=== PATIENT | male | born 1950 | race Caucasian/White ===

== ENCOUNTER 2021-05-19 22:49 | Emergency (ER) | payer OTHER, MEDICARE, SELFPAY ==
--- NOTE | ~2021-05-19 | XR_ITS ---
EXAMINATION: LEFT SHOULDER, LEFT ANKLE, LEFT FOOT CLINICAL INFORMATION: Fall with shoulder, ankle and foot pain COMPARISON: None TECHNIQUE: 3 views left shoulder, 2 views left ankle, 3 views left foot FINDINGS: Left shoulder: No significant bone joint or soft tissue abnormality is seen. Left ankle: Generalized osteopenia is present The ankle mortise appears stable. There is a spiral fracture through the lateral malleolus which is nondisplaced without significant associated soft tissue swelling.. Well-corticated bony fragments are seen at the ends of the medial and lateral malleolus, possibly secondary to remote trauma. There is one fragment at the lateral portion of the medial malleolus which does not have sclerotic margins which could represent an avulsion fracture. Left foot: Generalized osteopenia is present. At the base of the proximal phalange ease of the first and second digits on the radial aspects, there or fractures which extend into the joint space XR/XR ankle LT min 3V IMPRESSION: 1. No shoulder fracture. 2. Fracture of the lateral malleolus and possibly medial malleolus 3. Fractures at the base of the proximal phalanges of the first and second digits.
--- NOTE | ~2021-05-19 | CT_ITS ---
EXAMINATION: CT HEAD WITHOUT CONTRAST CLINICAL INFORMATION: Fall, head injury, on Pradaxa COMPARISON: None TECHNIQUE: Contiguous axial imaging was performed from the skull base to vertex without intravenous administration of contrast. Coronal and sagittal reformatted images are performed at the CT scanner. [This CT examination was performed using dose optimization techniques as appropriate, variously including the following: *Automated exposure control *Adjustment of mA and/or kV according to patient size (this includes techniques or standardized protocols for targeted exams where dose is matched to indication/reason for exam; i.e. extremities or head) *Use of iterative reconstruction technique] DLP: 743 mGy-cm. FINDINGS: Large area of old infarct of encephalomalacia in the right MCA territory communicating to the right lateral ventricle. There is no evidence of acute intracranial hemorrhage or territorial infarction. No abnormal mass-effect or midline shift is seen. Cortés to white matter differentiation is well preserved. No extra-axial fluid collections are identified. Acute There is generalized global volume loss. There is moderate prominence of the ventricles and the sulci . There are vascular calcifications of the internal carotid arteries bilaterally. There is no osseous abnormality. The mastoid air cells and visualized portions of the paranasal sinuses are well-aerated. CT/CT head/brain wo con IMPRESSION: No acute intracranial pathology.
--- NOTE | ~2021-05-19 | XR_ITS ---
EXAMINATION: LEFT SHOULDER, LEFT ANKLE, LEFT FOOT CLINICAL INFORMATION: Fall with shoulder, ankle and foot pain COMPARISON: None TECHNIQUE: 3 views left shoulder, 2 views left ankle, 3 views left foot FINDINGS: Left shoulder: No significant bone joint or soft tissue abnormality is seen. Left ankle: Generalized osteopenia is present The ankle mortise appears stable. There is a spiral fracture through the lateral malleolus which is nondisplaced without significant associated soft tissue swelling.. Well-corticated bony fragments are seen at the ends of the medial and lateral malleolus, possibly secondary to remote trauma. There is one fragment at the lateral portion of the medial malleolus which does not have sclerotic margins which could represent an avulsion fracture. Left foot: Generalized osteopenia is present. At the base of the proximal phalange ease of the first and second digits on the radial aspects, there or fractures which extend into the joint space XR/XR shoulder LT min 2V IMPRESSION: 1. No shoulder fracture. 2. Fracture of the lateral malleolus and possibly medial malleolus 3. Fractures at the base of the proximal phalanges of the first and second digits.
--- NOTE | ~2021-05-19 | XR_ITS ---
EXAMINATION: LEFT SHOULDER, LEFT ANKLE, LEFT FOOT CLINICAL INFORMATION: Fall with shoulder, ankle and foot pain COMPARISON: None TECHNIQUE: 3 views left shoulder, 2 views left ankle, 3 views left foot FINDINGS: Left shoulder: No significant bone joint or soft tissue abnormality is seen. Left ankle: Generalized osteopenia is present The ankle mortise appears stable. There is a spiral fracture through the lateral malleolus which is nondisplaced without significant associated soft tissue swelling.. Well-corticated bony fragments are seen at the ends of the medial and lateral malleolus, possibly secondary to remote trauma. There is one fragment at the lateral portion of the medial malleolus which does not have sclerotic margins which could represent an avulsion fracture. Left foot: Generalized osteopenia is present. At the base of the proximal phalange ease of the first and second digits on the radial aspects, there or fractures which extend into the joint space XR/XR foot LT 2V IMPRESSION: 1. No shoulder fracture. 2. Fracture of the lateral malleolus and possibly medial malleolus 3. Fractures at the base of the proximal phalanges of the first and second digits.
[2021-05-19 22:54] VITALS: BP 154/71; BP 166/76; PULSE 74; PULSE 82; RESP 16; TEMP 36.8; O2SAT 97; O2SAT 98; BMI 31.5
--- NOTE | 2021-05-19 23:09 | ED.FALL ---
HPI - Fall General Chief Complaint: Fall Stated Complaint: ETOH Time Seen by Provider: 05/19/21 23:05 Source: patient and EMS Mode of arrival: EMS Limitations: no limitations History of Present Illness HPI Narrative: [age] year male came in by ambulance for further evaluation after fall. Patient with history of stroke with residual left hemiparesis, patient was walking from the bedroom to the bathroom on his left ankle give out and was twisted causing the patient to fall. Patient was sent for evaluation of left ankle/left shoulder pain and questionable head injury patient is taking Pradaxa for anti coagulation. Related Data Home Medications Medication Instructions Recorded Confirmed amlodipine 5 mg tablet 5 mg PO DAILY 05/20/21 05/20/21 baclofen 500 mcg/mL intrathecal 500 mcg INTRATHECAL DAILY 05/20/21 05/20/21 solution dabigatran etexilate 150 mg 150 mg PO BID 05/20/21 05/20/21 capsule (Pradaxa) duloxetine 60 mg capsule,delayed 60 mg PO DAILY 05/20/21 05/20/21 release sprinkle lamotrigine 100 mg tablet 100 mg PO DAILY 05/20/21 05/20/21 levetiracetam 1,000 mg tablet 1,000 mg PO BID 05/20/21 05/20/21 (Keppra) levothyroxine 25 mcg tablet 25 mcg PO DAILY 05/20/21 05/20/21 lisinopril 10 mg tablet 10 mg PO DAILY 05/20/21 05/20/21 meclizine 25 mg tablet 25 mg PO TID 05/20/21 05/20/21 ondansetron HCl 8 mg tablet 8 mg PO Q8H PRN 05/20/21 05/20/21 pantoprazole 40 mg tablet,delayed 40 mg PO DAILY 05/20/21 05/20/21 release pramipexole 0.25 mg tablet 0.25 mg PO BEDTIME 05/20/21 05/20/21 rosuvastatin 40 mg tablet (Crestor) 40 mg PO DAILY 05/20/21 05/20/21 sennosides 8.6 mg-docusate sodium 1 tab-cap PO BEDTIME 05/20/21 05/20/21 50 mg tablet (Senna-S) Allergies Allergy/AdvReac Type Severity Reaction Status Date / Time codeine Allergy Unknown Verified 05/19/21 22:59 Review of Systems Review of Systems: All other systems are reviewed and are negative Constitutional: Reports as per HPI and Reports no additional constitutional complaints Eyes: Reports as per HPI and Reports no additional eye complaints Reports system reviewed and no additional complaints, except as documented Cardiovascular: Reports as per HPI and Reports no additional cardiovascular complaints Respiratory: Reports as per HPI and Reports no additional respiratory complaints Gastrointestinal: Reports as per HPI and Reports no additional gastrointestinal complaints Genitourinary: Reports no additional female genitourinary complaints Musculoskeletal: Reports no additional musculoskeletal complaints Skin/Breast: Reports system reviewed and no additional complaints, except as docu Psychiatric: Reports no additional psychiatric complaints Endocrine: Reports no additional endocrine complaints Hematologic/Lymphatic: Reports no additional hematologic/lymphatic complaints Allergic/Immunologic: Reports no additional allergic/immunologic complaints Reports system reviewed and no additional complaints, except as documented and Reports Abnormal speech present [facility] Past Medical History Medical History CVA (cerebral vascular accident) Seizure Shoulder separation SunDown syndrome Social History Social History Alcohol intake: current Alcohol intake frequency: holidays/special occasions only Patient Tobacco Use Status: Former Tobacco user Smoked in Last 30 Days: Yes Use of substances other than those prescribed or required for medical reasons: Yes Substance Use Type: Marijuana Substance Use Frequency: Socially Last Used Substance: Weeks (ago) Any prior treatment program specific to substance use: No Physical Exam Vital Signs: Vital Signs: Last Vital Signs Temp 98.2 F 05/19/21 22:54 Pulse 76 05/19/21 23:55 Resp 18 05/19/21 23:55 BP 150/54 H 05/19/21 23:55 Pulse Ox 98 05/19/21 23:55 Body Mass Index 31.5 Vital signs have been reviewed as appeared to be correct. Blood pressure normal. Heart rate normal. Respiration rate normal. Temperature normal. Oxygen saturation normal. Appearance: Alert. Oriented X3. No acute distress. Head: Normal external exam. Normocephalic. Atraumatic. No Cuevas signs noted. No raccoon eyes noted Eyes: PERRLA. EOMI. Conjunctiva and sclera normal. Eyelids normal. ENT: TM's Normal. Pharynx normal. Uvula midline. Moist mucous membranes. No trismus noted. No drooling noted. No muffled voice noted. Neck: Normal inspection. Neck supple. FROM. No adenopathy. Thyroid Normal. No meningeal signs. No neck mass noted. CVS: Normal heart rate and rhythm. Heart sound normal. No murmurs noted. Pulses normal throughout. Respiratory: No respiratory distress. Painless inspiration. Breath sounds normal. No wheezes/rales/rhonchi noted. Chest nontender. No accessory muscle usage noted or decreased air movement noted. Abdomen: Soft and nontender. Bowel sounds normal in all 4 quadrants. No distention noted. No organomegaly noted. No visible injury noted. Back: No CVA tenderness. Full range of motion noted. Skin: Skin warm and dry. Normal skin color. Normal skin turgor. No rashes/lesions/lacerations noted. Extremities: Left shoulder tenderness, no obvious deformity. Left ankle swelling, mild tenderness, small ecchymosis on lateral malleolus. Neuro: Residual left hemiparesis Course Course Course Narrative: Assessment and plan. 71-year-old male history of stroke with residual left hemiparesis, status post mechanical fall, patient sustained left ankle fracture. 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 Reevaluation(s) Reevaluation #1: Physician observation started at 1:00 . Patient placed in physician observation because the patient needed more time for medication to work and to see PT/case management for evaluation and the need for placement patient's vital sign were stable, patient is alert and oriented , neuro exam unchanged, unremarkable rest of physical exam. Time: 01:00 MDM - Fall Medical Records Attestation: I reviewed the patient's medical records. Imaging Data left shoulder xrays: Radiologist's impression: No shoulder fracture Left ankle and left foot x-ray: Radiologist's impression: Fracture of the lateral malleolus and possibly medial malleolus Fractures at the base of the? proximal phalanges of the first and second digits.? CT scan - head: Radiologist's impression: No acute intracranial pathology. Discharge Plan Discharge Clinical Impression: Ankle fracture, left Qualifiers: Encounter type: initial encounter Fracture type: closed Qualified Code(s): S82.892A - Other fracture of left lower leg, initial encounter for closed fracture Foot fracture, left Qualifiers: Encounter type: initial encounter Fracture type: closed Qualified Code(s): S92.902A - Unspecified fracture of left foot, initial encounter for closed fracture Prescriptions: No Action ondansetron HCl [Zofran] 8 mg Tablet 8 mg PO Q8H PRN (Reason: Nausea) RF: 0 amlodipine 5 mg Tablet 5 mg PO DAILY RF: 0 levothyroxine 25 mcg Tablet 25 mcg PO DAILY RF: 0 meclizine 25 mg Tablet 25 mg PO TID RF: 0 lisinopril 10 mg Tablet 10 mg PO DAILY RF: 0 lamotrigine 100 mg Tablet 100 mg PO DAILY RF: 0 rosuvastatin [Crestor] 40 mg Tablet 40 mg PO DAILY RF: 0 levetiracetam [Keppra] 1,000 mg Tablet 1,000 mg PO BID RF: 0 sennosides-docusate sodium [Senna-S] 8.6-50 mg Tablet 1 tab-cap PO BEDTIME RF: 0 baclofen 500 mcg/mL Solution 500 mcg INTRATHECAL DAILY RF: 0 pantoprazole 40 mg Tablet,Delayed Release (Dr/Ec) 40 mg PO DAILY RF: 0 pramipexole 0.25 mg Tablet 0.25 mg PO BEDTIME RF: 0 Pradaxa 150 mg Capsule 150 mg PO BID RF: 0 duloxetine 60 mg Capsule, Delayed Rel Sprinkle 60 mg PO DAILY RF: 0 Referrals: Reza Mckay MD [Physician] - 2 weeks
[2021-05-19 23:55] VITALS: BP 150/54; PULSE 76; RESP 18; O2SAT 98
[2021-05-20] VITALS (15 sets, daily range): BP systolic 114–170; BP diastolic 61–77; PULSE 70–83; RESP 12–18; TEMP 36.4–36.9; O2SAT 95–98
[2021-05-20] MEDS: Ondansetron ODT 4 MG TAB.RAPDIS TRANSLINGU (02:13)
--- NOTE | 2021-05-20 03:26 | PC.NURSE ---
Spoke with Maria Victoria once results of xrays received. Aware that patient will see PT and CM in the am. Requesting [facility] for Rehab. Contact numbers for Maria Victoria (H: [phone] C: [phone])
[2021-05-20] MEDS: Acetaminophen 325 MG TABLET 650 MG PO (05:02)
--- NOTE | 2021-05-20 10:06 | PHA.MEDREC ---
Pharmacy Consult ? Medication Reconciliation Pharmacy has completed the medication reconciliation.CONTACTED [facility] FOR MED LIST
[2021-05-20] MEDS: DULoxetine HCl 60 MG CAPSULE.DR PO (10:17)
[2021-05-20] MEDS: Omeprazole 20 MG CAPSULE.DR PO (10:17)
[2021-05-20] MEDS: Levothyroxine Sodium 25 MCG TABLET PO (10:17)
[2021-05-20] MEDS: Dabigatran Etexilate Mesylate 150 MG CAPSULE PO ×2 (10:17→20:35)
[2021-05-20] MEDS: levETIRAcetam 1,000 MG TABLET 1000 MG PO ×2 (10:17→20:35)
[2021-05-20] MEDS: Meclizine HCl 25 MG TABLET PO ×3 (10:17→20:35)
--- NOTE | 2021-05-20 10:46 | MHC.CM.ED ---
Received case management consult overnight. Patient came to ER after a fall. Physical therapy eval completed. Short term rehab is recommended. [facility] Referral made via [employer]. [facility] in the process of trying to obtain insurance auth. Maria Victoria made aware via telephone. PCP is Dr Driss Patton. Patient received 2 Moderna vaccines. Copy of HCP obtained from [facility]. Continue to monitor for d/c needs.
[2021-05-20] MEDS: amLODIPine Besylate 10 MG TABLET PO (10:50)
[2021-05-20] MEDS: Cyanocobalamin (Vitamin B-12) 100 MCG TABLET PO (10:50)
[2021-05-20] MEDS: Atorvastatin Calcium 80 MG TABLET PO (10:51)
[2021-05-20] MEDS: Cholecalciferol (Vitamin D3) 25 MCG TABLET 50 MCG PO (10:51)
--- NOTE | 2021-05-20 12:02 | PC.NURSE ---
PATIENT CURRENTLY SLEEPING, RR 17, WILL CONTINUE TO MONITOR.
--- NOTE | 2021-05-20 13:14 | PC.NURSE ---
baclofen baclofen pump is inserted sub q, states it was recently filled and administered the medication on its own during the day.
--- NOTE | 2021-05-20 13:19 | MHC.CM.ED ---
Received notification from [facility] [place] that they do not have a bed to offer today. List of facilities contracted with the [place] and Medicare provided via email to , Maria Victoria. Continue to monitor for d/c needs.
--- NOTE | 2021-05-20 13:42 | MHC.CM.ED ---
Facility choices per Maria Victoria: 1)[facility]) [place] 3) [facility]. Referrals made in [employer]. Continue to monitor for d/c needs.
--- NOTE | 2021-05-20 13:56 | MHC.CM.ED ---
[facility] is the only facility able to offer a bed. Spoke with Maria Victoria via telephone. [facility] accepts bed. [facility] has been asked to obtain insurance auth. Continue to monitor for d/c needs.
--- NOTE | 2021-05-20 14:18 | PC.NURSE ---
pt oob with 2 assist stand/pivot to commode to urinate, pt back to bed, vitals obtained, pt states pain 4/10, pt has + csm/pulse felt under cast, pt states hes unable to moves his toes well on the left, will continue to monitor.
[2021-05-20 14:48] LABS: COVID-19 Test Negative (Negative); IDNOW Serial# 9DD0AD1C
--- NOTE | 2021-05-20 15:12 | MHC.CM.ED ---
Received notification from [facility] [place] that they will not be able to accept patient before tomorrow, 05/21. Patient , Maria Victoria aware. Patient will remain in ER until 05/20 when patient can be transferred to [facility]. Continue to monitor for d/c needs.
[2021-05-20] MEDS: Ipratropium Bromide Nas 0.03 % 30 ML SPRAY 2 SPRAY NOSTRIL-B ×2 (15:23→20:34)
--- NOTE | 2021-05-20 15:34 | PC.NURSE ---
patient stood and pivot to commode with 2 assist- tolerated well, pt self administered nasal spray at his request, too meds whole with water, will continue to monitor.
--- NOTE | 2021-05-20 18:20 | PC.NURSE ---
patient was asked if he would like dinner, pt states hes not wanting food at this time, pt was advised that he could have a sandwich later if he desired.
--- NOTE | 2021-05-20 20:02 | PC.NURSE ---
patient a&o, vss, pt currently denying pain to LLE, pt has + csm/pulses-under krunal wrap, rings appropriately, will continue to monitor.
--- NOTE | 2021-05-20 20:15 | PC.NURSE ---
called pharmacy for missing meds, will medicate patient when they are obtained
[2021-05-20] MEDS: LORazepam 1 MG TABLET 2 MG PO (20:35)
[2021-05-20] MEDS: Sennosides/Docusate Sodium TABLET 1 TAB PO (20:35)
[2021-05-20] MEDS: Pramipexole Di-HCL 0.25 MG TABLET PO (20:35)
--- NOTE | 2021-05-20 20:37 | PC.NURSE ---
pt medicated per order
--- NOTE | 2021-05-20 22:08 | PC.NURSE ---
patient awake/alert- vitals stable, LLE + csm, pt [facility]. will continue to monitor.
--- NOTE | 2021-05-21 08:32 | MHC.CM.ED ---
Per [place] at [facility], patient can leave at 10am. [facility] booked. Med nec with chart. Patient, Maria Victoria, and Josefina JASSO aware. Continue to monitor for d/c needs.
[2021-05-21] MEDS: Levothyroxine Sodium 25 MCG TABLET PO (09:21)
[2021-05-21] MEDS: DULoxetine HCl 60 MG CAPSULE.DR PO (09:21)
[2021-05-21] MEDS: Atorvastatin Calcium 80 MG TABLET PO (09:21)
[2021-05-21 09:22] VITALS: BP 172/73; PULSE 81
[2021-05-21] MEDS: levETIRAcetam 1,000 MG TABLET 1000 MG PO (09:22)
[2021-05-21] MEDS: Omeprazole 20 MG CAPSULE.DR PO (09:22)
[2021-05-21] MEDS: Meclizine HCl 25 MG TABLET PO (09:22)
[2021-05-21] MEDS: Dabigatran Etexilate Mesylate 150 MG CAPSULE PO (09:22)
[2021-05-21] MEDS: Cholecalciferol (Vitamin D3) 25 MCG TABLET 50 MCG PO (09:22)
[2021-05-21 09:25] VITALS: BP 172/73; PULSE 80
[2021-05-21] MEDS: amLODIPine Besylate 10 MG TABLET PO (09:25)
== END 2021-05-21 09:53 | disposition skilled nursing facility (03) ==
PROVIDERS: Physician Assistant; Emergency Provider Emergency Medicine; PCP Family Medicine
DX: S82.892A Other fracture of left lower leg, initial encounter for closed fracture (principal); S92.902A Unspecified fracture of left foot, initial encounter for closed fracture; W01.0XXA Fall on same level from slipping, tripping and stumbling without subsequent striking against object, initial encounter; I69.354 Hemiplegia and hemiparesis following cerebral infarction affecting left non-dominant side; F12.90 Cannabis use, unspecified, uncomplicated; Z20.822 Contact with and (suspected) exposure to COVID-19; Y93.89 Activity, other specified; Y92.019 Unspecified place in single-family (private) house as the place of occurrence of the external cause; Y99.9 Unspecified external cause status; Z79.01 Long term (current) use of anticoagulants
CPT/HCPCS: 36415; 70450; 73030; 73610; 73620; 87635; 97162; 99285

== ENCOUNTER → 2021-06-16 09:58 | Outpatient (BNVA) | payer OTHER, SELFPAY | PROVIDERS: Visit Provider Physician Assistant | DX: S82.62XA Displaced fracture of lateral malleolus of left fibula, initial encounter for closed fracture (principal); S92.412A Displaced fracture of proximal phalanx of left great toe, initial encounter for closed fracture; S92.512A Displaced fracture of proximal phalanx of left lesser toe(s), initial encounter for closed fracture; W18.39XA Other fall on same level, initial encounter; Y93.01 Activity, walking, marching and hiking; Y92.009 Unspecified place in unspecified non-institutional (private) residence as the place of occurrence of the external cause; Y99.8 Other external cause status; F05 Delirium due to known physiological condition; Z87.891 Personal history of nicotine dependence; Z86.73 Personal history of transient ischemic attack (TIA), and cerebral infarction without residual deficits; Z88.5 Allergy status to narcotic agent | CPT/HCPCS: 99202 ==

== ENCOUNTER 2021-07-14 07:26 | Outpatient (REF) | payer OTHER, SELFPAY ==
--- NOTE | ~2021-07-14 | XR_ITS ---
EXAMINATION: XR FOOT, LEFT CLINICAL INFORMATION: Left foot pain. COMPARISON: None TECHNIQUE: AP, lateral, and oblique views of the left foot. FINDINGS: There is diffuse osteopenia. No visible acute fracture, dislocation or subluxation seen. The ankle mortise and subtalar joints are normal. Incidentally noted is an oblique fracture along the left distal fibula on lateral foot exam. XR/XR foot LT min 3V IMPRESSION: Oblique fracture left distal fibula. No additional fracture seen of foot. There is diffuse osteopenia and mild soft tissue swelling lateral ankle.
--- NOTE | ~2021-07-14 | XR_ITS ---
EXAMINATION: XR ANKLE, LEFT CLINICAL INFORMATION: Ankle pain. COMPARISON: None TECHNIQUE: AP, lateral, and mortise views of the left ankle. FINDINGS: Generalized osteopenia is present. There is a nondisplaced oblique fracture through the distal fibula, best seen on the lateral radiograph. No other fractures are seen. Well-corticated bony densities seen at the tips of the malleoli probably secondary to remote trauma. XR/XR ankle LT min 3V IMPRESSION: 1. Nondisplaced acute fracture distal fibula. 2. Other chronic findings, as described above.
== END 2021-07-14 07:27 | disposition home or self-care (01) ==
LOC: HO.HOSX 07:26
PROVIDERS: Visit Provider Physician Assistant
DX: S92.912D Unspecified fracture of left toe(s), subsequent encounter for fracture with routine healing (principal); S82.63XD Displaced fracture of lateral malleolus of unspecified fibula, subsequent encounter for closed fracture with routine healing
CPT/HCPCS: 73610; 73630; 99212

== ENCOUNTER 2023-11-17 18:41 | Emergency (ER) | payer OTHER, SELFPAY ==
--- NOTE | 2023-11-17 | ECG_ITS ---
Test Reason : SEIZURE Blood Pressure : / mmHG Vent. Rate : 072 BPM Atrial Rate : 072 BPM P-R Int : 196 ms QRS Dur : 096 ms QT Int : 394 ms P-R-T Axes : 057 021 122 degrees QTc Int : 431 ms Normal sinus rhythm T wave abnormality, consider lateral ischemia Abnormal ECG No previous ECGs available Referred By: Maye Davis Electronically Signed By:NESTOR PRATT MD
--- NOTE | ~2023-11-17 | XR_ITS ---
EXAMINATION: Left shoulder and chest x-ray. CLINICAL INDICATION: Left shoulder pain and chest pain. COMPARISON: None. TECHNIQUE: 3 views left shoulder and chest one view. FINDINGS: LEFT SHOULDER: The left AC joint is normal. There is mild reduction in the left glenohumeral joint space without periarticular spurring of bony erosive changes. No visible acute fracture, dislocation or subluxation seen. The soft tissues are normal. CHEST: The lungs are well-expanded and clear. Heart size and pulmonary vascularity is normal. There is moderate spondylosis dorsal spine. No aggressive lytic or sclerotic process seen. XR/XR shoulder LT min 2V IMPRESSION: 1. Mild degenerative changes left glenohumeral joint but otherwise no visible acute fracture or dislocation. 2. Unremarkable chest exam. 3. Moderate spondylosis dorsal spine. No aggressive lytic or sclerotic process seen.
--- NOTE | ~2023-11-17 | CT_ITS ---
EXAMINATION: CT HEAD WITHOUT CONTRAST CLINICAL INFORMATION: Mental status change. COMPARISON: Head CT 05/19/2021. TECHNIQUE: Contiguous axial imaging was performed from the skull base to vertex without intravenous administration of contrast. This CT examination was performed using dose optimization techniques as appropriate, variously including the following: *Automated exposure control *Adjustment of mA and/or kV according to patient size (this includes techniques or standardized protocols for targeted exams where dose is matched to indication/reason for exam; i.e. extremities or head) *Use of iterative reconstruction technique DLP: 723 mGy-cm. FINDINGS: There is no intracranial hemorrhage, extra-axial collection, mass effect, or acute large territorial infarction. There is a large area of chronic infarction the right middle cerebral artery vascular territory involving the right basal ganglia, insula, frontal lobe, and temporal lobe. Wallerian degeneration is seen along the right-sided corticospinal tract. There is ex vacuo dilatation of the right lateral ventricle. The extracranial structures are within normal limits. CT/CT head/brain wo IV con IMPRESSION: No acute intracranial abnormality. Large chronic infarction in the right middle cerebral artery vascular territory.
--- NOTE | ~2023-11-17 | US_ITS ---
EXAMINATION: US VENOUS ULTRASOUND WITH DOPPLER LOWER EXTREMITY, LEFT CLINICAL INFORMATION: History of DVT, swelling. COMPARISON: None available. TECHNIQUE: Ultrasound of the deep veins is performed from the hip to the calf with compression sonography and color and pulse Doppler assessment. Spectral analysis with color-flow imaging is performed. FINDINGS: There is normal venous compression and respiratory variation and augmented flow. The visualized common femoral vein, superficial femoral vein, profunda femoral vein, popliteal vein, and the trifurcation region shows no evidence of deep venous thrombosis. There is no significant popliteal fossa cyst. If the patient's symptoms persist, followup ultrasound in 5 days 7 days might be of value to exclude proximal propagation from a non-visualized calf vein. US/US venous duplex LE IMPRESSION: No DVT demonstrated in the left lower extremity.
--- NOTE | ~2023-11-17 | XR_ITS ---
EXAMINATION: Left shoulder and chest x-ray. CLINICAL INDICATION: Left shoulder pain and chest pain. COMPARISON: None. TECHNIQUE: 3 views left shoulder and chest one view. FINDINGS: LEFT SHOULDER: The left AC joint is normal. There is mild reduction in the left glenohumeral joint space without periarticular spurring of bony erosive changes. No visible acute fracture, dislocation or subluxation seen. The soft tissues are normal. CHEST: The lungs are well-expanded and clear. Heart size and pulmonary vascularity is normal. There is moderate spondylosis dorsal spine. No aggressive lytic or sclerotic process seen. XR/XR chest 1V IMPRESSION: 1. Mild degenerative changes left glenohumeral joint but otherwise no visible acute fracture or dislocation. 2. Unremarkable chest exam. 3. Moderate spondylosis dorsal spine. No aggressive lytic or sclerotic process seen.
[2023-11-17 19:01] VITALS: BP 138/80; PULSE 80; O2SAT 96
[2023-11-17 19:15] VITALS: BMI 33.9
[2023-11-17 19:58] VITALS: BP 111/48; PULSE 72; RESP 16; TEMP 36.5; O2SAT 97
--- NOTE | 2023-11-17 20:01 | PHA.MEDREC ---
Pharmacy Consult ? Medication Reconciliation Pharmacy has completed the medication reconciliation. [facility] from [facility] with med list. Tiffany Banda, RobD
[2023-11-17 20:03] LABS: MANUAL DIFF FLAG NO
[2023-11-17 20:05] LABS: Basophils Absolute Auto 0.1 X10*3/uL (0.0-0.2); Basophils Percent Auto 1.1 % (0-2); Eosinophils Absolute Auto 0.3 X10*3/uL (0.0-0.4); Eosinophils Percent Auto 4.6 % (0-4); Hematocrit 34.8 % (42.0-52.0); Hemoglobin 11.5 g/dl (14.0-18.0); Imm Gran Abs Auto 0.02 X10*3/uL (0.00-0.03); Imm Gran Pct Auto 0.3 % (0.0-0.4); Mean Corpuscular Hemoglobin 27.9 pg (27.0-33.0); Mean Corpuscular Volume 84.5 fL (80.0-98.0); Mean Platelet Volume 9.5 fL (9.4-12.4); Monocytes Absolute Auto 0.6 X10*3/uL (0.1-1.2); Monocytes Percent Auto 8.4 % (2-11); Neutrophils Absolute Auto 3.6 x10*3/uL (2.0-8.3); Neutrophils Percent Auto 54.6 % (45-73); Platelet Count 231 X10*3/uL (160-400); Red Blood Count 4.12 X10*6/uL (4.60-5.80); Red Cell Distribution Width 14.5 % (11.0-16.0); White Blood Count 6.6 X10*3/uL (4.8-10.8)
[2023-11-17 20:22] LABS: Alanine Aminotransferase 20 U/L (0-40); Albumin Level 3.4 g/dL (3.5-5.0); Alkaline Phosphatase 60 U/L (39-117); Anion Gap 12 (12-20); Aspartate Amino Transferase 26 U/L (5-37); Bilirubin Total 0.3 mg/dL (0.0-1.0); Blood Urea Nitrogen 20 mg/dL (9-16); Calcium 8.5 mg/dL (8.4-10.2); Carbon Dioxide 21 mmol/L (22-29); Chloride 105 mmol/L (96-108); Creatinine Clr Calc Pharmacy 67.7; Estimated Glomerular Filt Rate 54; Glucose Random 177 mg/dL (60-115); Potassium 4.3 mmol/L (3.3-5.1); Sodium 134 mmol/L (135-145)
[2023-11-17 20:25] LABS: Troponin-I High Sensitivity 6.2 ng/L (<3.5-35.0)
--- NOTE | 2023-11-17 21:24 | ED.GENADULT ---
HPI - General Adult General Chief complaint: General Medical Stated complaint: SNF,AMS,COMBATIVE,KICKING, STAFF ?SZ Time Seen by Provider: 11/17/23 18:56 Source: patient, family (Spouse) and EMS Mode of arrival: EMS Limitations: physical limitation (Short term memory defect.) History of Present Illness HPI narrative: A 73-year-old male brought in by EMS from [facility] with history significant for to strokes with short-term memory defect, hemiparesis, vascular dementia, major depressive disorder, HTN, GERD, chronic kidney disease. Brought in with his for evaluation of confusion and change mental status, and uncontrollable episodes of shaking that started for the past week. Patient has been having insomnia was started on trazodone for the past 5-6 days then the patient started to have confusion, generalized weakness, patient had history of same reaction to trazodone in the past. Patient also been having left leg swelling and redness but no fever. Patient had history of DVT on Pradaxa for anti coagulation. Related Data Home Medications Medication Instructions Recorded Confirmed cholecalciferol (vitamin D3) 50 1 tab PO DAILY 05/20/21 11/17/23 mcg (2,000 unit) tablet (Vitamin D3) dabigatran etexilate 150 mg 150 mg PO BID 05/20/21 11/17/23 capsule (Pradaxa) duloxetine 60 mg capsule,delayed 60 mg PO DAILY 05/20/21 11/17/23 release sprinkle ipratropium bromide 21 mcg (0.03 1 spray intranasal BID PRN 05/20/21 11/17/23 %) nasal spray Congestion levetiracetam 1,000 mg tablet 1,000 mg PO BID 05/20/21 11/17/23 (Keppra) levothyroxine 25 mcg tablet 25 mcg PO DAILY@0630 05/20/21 11/17/23 meclizine 25 mg tablet 25 mg PO TID 05/20/21 11/17/23 ondansetron HCl 8 mg tablet 8 mg PO BID PRN Nausea 05/20/21 11/17/23 pantoprazole 40 mg tablet,delayed 40 mg PO DAILY@0630 05/20/21 11/17/23 release rosuvastatin 40 mg tablet (Crestor) 40 mg PO DAILY 05/20/21 11/17/23 sennosides 8.6 mg-docusate sodium 2 tab-cap PO BID PRN Constipation 05/20/21 11/17/23 50 mg tablet (Senna-S) ascorbic acid (vitamin C) 500 mg 500 mg PO DAILY 11/17/23 11/17/23 tablet ferrous sulfate 325 mg (65 mg 325 mg PO DAILY 11/17/23 11/17/23 iron) tablet fluticasone propionate 50 1 spray intranasal DAILY 11/17/23 11/17/23 mcg/actuation nasal spray,suspension lisinopril 5 mg tablet 5 mg PO DAILY 11/17/23 11/17/23 melatonin 3 mg tablet 6 mg PO BEDTIME 11/17/23 11/17/23 multivitamin 1 tab PO DAILY 11/17/23 11/17/23 pramipexole 0.125 mg tablet 0.375 mg PO BEDTIME 11/17/23 11/17/23 simethicone 80 mg chewable tablet 80 mg PO TID PRN Gastrointestinal 11/17/23 11/17/23 Spasms Or Cramping trazodone 50 mg tablet 25 mg PO DAILY PRN Anxiety 11/17/23 11/17/23 Previous Rx's Medication Instructions Recorded doxycycline hyclate 100 mg tablet 100 mg PO BID #14 tabs 11/17/23 Allergies Allergy/AdvReac Type Severity Reaction Status Date / Time codeine Allergy Unknown Verified 07/14/21 11:48 Review of Systems Review of Systems: Yes Unobtainable due to mental condition [facility] Past Medical History Medical History Shoulder separation Seizure CVA (cerebral vascular accident) SunDown syndrome Social History Social History Alcohol intake: current Alcohol intake frequency: holidays/special occasions only Patient Tobacco Use Status: Former Tobacco user Substance Use Type: Marijuana Advance Directives: Yes Advance Directives on File: Yes Advance Directives Date on File: 05/20/21 Current occupation: rt handed Physical Exam ED Vital Signs: Vital Signs - 24 hr 11/17/23 19:58 11/17/23 22:13 Temperature 97.7 F 97.6 F Pulse Rate 72 71 Respiratory Rate 16 18 Blood Pressure 111/48 L 112/59 L Pulse Oximetry 97 99 Oxygen Delivery Method Room Air Room Air BMI result Body Mass Index 33.9 Vital signs have been reviewed and appear to be correct. Blood pressure elevated. Heart rate normal. Respiratory rate normal. Temperature normal. Oxygen saturation normal. Appearance: Alert. Oriented X3. No acute distress. Head: Normal external exam. Normocephalic. Atraumatic. No [place] signs noted. No raccoon eyes noted Eyes: PERRLA. EOMI. Conjunctiva and sclera normal. Eyelids normal. ENT: TM's Normal. Pharynx normal. Uvula midline. Moist mucous membranes. No trismus noted. No drooling noted. No muffled voice noted. Neck: Normal inspection. Neck supple. FROM. No adenopathy. Thyroid Normal. No meningeal signs. No neck mass noted. CVS: Normal heart rate and rhythm. Heart sound normal. No murmurs noted. Pulses normal throughout. Respiratory: No respiratory distress. Painless inspiration. Breath sounds normal. No wheezes/rales/rhonchi noted. Chest nontender. No accessory muscle usage noted or decreased air movement noted. Abdomen: Soft and nontender. Bowel sounds normal in all 4 quadrants. No distention noted. No organomegaly noted. No visible injury noted. Back: No CVA tenderness. Full range of motion noted. Skin: Skin warm and dry. Normal skin color. Normal skin turgor. No rashes/lesions/lacerations noted. Extremities: No lower extremity edema. Extremities exhibit normal range of motion. Extremities nontender. Neuro: Oriented X 3. Cranial nerve exam: II-XII are grossly intact No motor deficit. No sensory deficit. Reflexes normal. Course Reevaluation(s) Reevaluation #1: A 73-year-old male came in from SNF for evaluation of increased confusion for the past week after started on trazodone to help his insomnia last week, patient's symptoms started about a week ago likely patient's delirium is secondary to trazodone use, will recommend not to use trazodone and use Ambien instead at the [facility]. Left lower extremity cellulitis with no sepsis criteria, patient had ultrasound showed no DVT will start the patient on oral doxycycline. Patient is DNR/DNI/do not transfer to hospital. Patient was evaluated by Dr. Rivas in the emergency department for possible admission, patient do not meet criteria for admission. Time: 23:15 Medications Administered Discontinued Medications Generic Name Dose Route Start Last Admin Trade Name Freq PRN Reason Stop Dose Admin Doxycycline Hyclate 100 mg/ 250 mls @ 166.67 mls/hr 11/17/23 21:38 11/17/23 22:17 Sodium Chloride IV 11/17/23 23:07 166.67 mls/hr ONCE ONE Administration Medical Decision Making Differential Diagnosis Differential Diagnoses: The differential diagnosis associated with the presentation includes (Delirium due to trazodone, delirium due to cellulitis of the left lower extremity, intracranial pathology, electrolyte abnormality, severe anemia, UTI, sepsis.) Admission/Observation Consideration of admission/observation: Escalation of care including admission/observation considered Consult Healthcare Provider Management of the patient was discussed with: Hospitalist (Dr. Rivas) Lab Data MDM Lab Attestation statement: I reviewed the patient's lab results. 11/17/23 19:57 11/17/23 19:57 Labs: Lab Results 11/17/23 11/17/23 Range/Units 19:57 21:46 WBC 6.6 (4.8-10.8) X10*3/uL RBC 4.12 L (4.60-5.80) X10*6/uL Hgb 11.5 L (14.0-18.0) g/dl Hct 34.8 L (42.0-52.0) % MCV 84.5 (80.0-98.0) fL MCH 27.9 (27.0-33.0) pg MCHC 33.0 (31.0-36.0) g/dl RDW 14.5 (11.0-16.0) % Plt Count 231 (160-400) X10*3/uL MPV 9.5 (9.4-12.4) fL Immature Gran % (Auto) 0.3 (0.0-0.4) % Neut % (Auto) 54.6 (45-73) % Lymph % (Auto) 31.0 (20-40) % [place] % (Auto) 8.4 (2-11) % Eos % (Auto) 4.6 H (0-4) % Baso % (Auto) 1.1 (0-2) % Lymph # (Auto) 2.0 (1.2-4.9) X10*3/uL [place] # (Auto) 0.6 (0.1-1.2) X10*3/uL Eos # (Auto) 0.3 (0.0-0.4) X10*3/uL Baso # (Auto) 0.1 (0.0-0.2) X10*3/uL Abs Immat Gran (auto) 0.02 (0.00-0.03) X10*3/uL Absolute Neuts (auto) 3.6 (2.0-8.3) x10*3/uL Absolute Nucleated RBC 0.000 (0.0-0.012) X10*3/uL Nucleated RBC % (auto) 0.0 (0.0-0.2) /100WBC Sodium 134 L (135-145) mmol/L Potassium 4.3 (3.3-5.1) mmol/L Chloride 105 (96-108) mmol/L Carbon Dioxide 21 L (22-29) mmol/L Anion Gap 12 (12-20) BUN 20 H (9-16) mg/dL Creatinine 1.30 (0.5-1.4) mg/dL Estim Creat Clear Calc 67.7 Estimated GFR 54 Random Glucose 177 H (60-115) mg/dL Calcium 8.5 (8.4-10.2) mg/dL Total Bilirubin 0.3 (0.0-1.0) mg/dL AST 26 (5-37) U/L ALT 20 (0-40) U/L Alkaline Phosphatase 60 (39-117) U/L Troponin I High Sens 6.2 (<3.5-35.0) ng/L Total Protein 6.0 L (6.5-8.0) g/dL Albumin 3.4 L (3.5-5.0) g/dL Urine Color Yellow Urine Appearance Clear Urine pH 5.5 (5.0-9.0) Ur Specific [place] 1.020 (1.005-1.025) Urine Protein 100 (2+) H (Neg-Trace) mg/dL Urine Glucose (UA) Negative (Negative) mg/dL Urine Ketones Negative (Negative) mg/dL Urine Blood Negative (Negative) Urine Nitrite Negative (Negative) Ur Leukocyte Esterase Negative (Negative) Urine RBC 0-2 (0-2) /HPF Urine WBC 0-5 (0-5) /HPF Ur Squamous Epith Cells 0-2 (0-2) /HPF Urine Bacteria None Seen (None Seen) Hyaline Casts 0-2 (0-2) /LPF Independent Interpretation I performed an independent interpretation of an: Plain X-Ray (Chest/shoulder:1. Mild degenerative changes left glenohumeral joint but otherwise no visible acute fracture or dislocation. 2. Unremarkable chest exam. 3. Moderate spondylosis dorsal spine. No aggressive lytic or sclerotic process seen. ) and CT Scan (Head: No acute pathology, old stroke.) Radiology Impression Discussion of test interpretation with radiology: I have reviewed the radiologist's reading. Chronic Conditions Patient?s care impacted by: Hypertension and Other (Bedridden due to old stroke) Discharge Plan Discharge Clinical Impression: Delirium, Cellulitis of left leg Patient Disposition: er [facility] Instructions: Cellulitis (ED), Acute Delirium (ED) Additional Instructions: DO NOT USE TRAZODONE FOR INSOMNIA, START WITH MELATONIN/BENADRYL IF NOT HELPING THE INSOMNIA START ON AMBIENT. ANTIBIOTIC TO BE GIVEN INSTRUCTED FOR LEFT LEG CELLULITIS. Prescriptions: New doxycycline hyclate 100 mg tablet 100 mg PO BID Qty: 14 0RF No Action ondansetron HCl [Zofran] 8 mg Tablet 8 mg PO BID PRN (Reason: Nausea) levothyroxine 25 mcg Tablet 25 mcg PO DAILY@0630 meclizine 25 mg Tablet 25 mg PO TID rosuvastatin [Crestor] 40 mg Tablet 40 mg PO DAILY levetiracetam [Keppra] 1,000 mg Tablet 1,000 mg PO BID sennosides-docusate sodium [Senna-S] 8.6-50 mg Tablet 2 tab-cap PO BID PRN (Reason: Constipation) pantoprazole 40 mg Tablet,Delayed Release (Dr/Ec) 40 mg PO DAILY@0630 dabigatran etexilate [Pradaxa] 150 mg Capsule 150 mg PO BID duloxetine 60 mg Capsule, Delayed Rel Sprinkle 60 mg PO DAILY ipratropium bromide 21 mcg (0.03 %) spray,non-aerosol 1 spray intranasal BID PRN (Reason: Congestion) cholecalciferol (vitamin D3) [Vitamin D3] 50 mcg (2,000 unit) tablet 1 tab PO DAILY multivitamin Tablet 1 tab PO DAILY trazodone 50 mg tablet 25 mg PO DAILY PRN (Reason: Anxiety) melatonin 3 mg Tablet 6 mg PO BEDTIME ascorbic acid (vitamin C) 500 mg Tablet 500 mg PO DAILY ferrous sulfate 325 mg (65 mg iron) Tablet 325 mg PO DAILY pramipexole 0.125 mg tablet 0.375 mg PO BEDTIME lisinopril 5 mg tablet 5 mg PO DAILY fluticasone propionate [Flonase] 50 mcg/actuation [place],Suspension 1 spray INTRANASAL DAILY Rx Instructions: administer into each nostril simethicone 80 mg Tablet,Chewable 80 mg PO TID PRN (Reason: Gastrointestinal Spasms Or Cramping) Referrals: Driss Patton MD [Primary Care Provider] -
[2023-11-17 21:54] LABS: Appearance Urine Clear; Color Urine Yellow; Glucose Urine UA Negative (Negative); Leukocyte Esterase Urine Negative (Negative); Nitrite Urine Negative (Negative); PH 5.5 (5.0-9.0); UMIC TRIGGER UACC YES; Urine Blood Negative (Negative); Urine Ketones Negative (Negative); Urine Protein 100 (2+) mg/dL (Neg-Trace)
[2023-11-17 21:59] LABS: Bacteria Urine None Seen (None Seen); Hyaline Casts Urine 0-2 /LPF (0-2); RBC Urine 0-2 /HPF (0-2); Squamous Epithelial Cell Urine 0-2 /HPF (0-2); WBC Urine 0-5 /HPF (0-5)
[2023-11-17 22:13] VITALS: BP 112/59; PULSE 71; RESP 18; TEMP 36.4; O2SAT 99
[2023-11-17] MEDS: Doxycycline Hyclate 100 MG in 0.9 % Sodium Chloride 250 ML 166.67 MG IV (22:17)
--- NOTE | 2023-11-17 22:27 | MHC.EDTECH ---
both sets of blood Culture drawn ,including lactic acid all sent to lab .
--- NOTE | 2023-11-17 23:32 | PC.NURSE ---
called nurse to nurse report and give update. Pt will be returning to [facility]
[2023-11-17 23:35] VITALS: BP 122/62; PULSE 70; RESP 16; TEMP 36.6; O2SAT 98
--- NOTE | 2023-11-17 23:48 | MHC.EDTECH ---
Call out to [facility] @[phone] to book BLS transport back to [facility] ETA of 25 minutes
--- NOTE | 2023-11-18 00:25 | MHC.EDTECH ---
Patient fed himself a pudding and and a couple cookie ,drank 120 ml cranberry juice .
[2023-11-18 01:51] VITALS: BP 137/45; PULSE 80; RESP 16; TEMP 36.7; O2SAT 98
== END 2023-11-18 02:49 | disposition skilled nursing facility (03) ==
PROVIDERS: Emergency Medicine Emergency Medical Services; Emergency Provider Emergency Medicine; PCP Family Medicine
DX: L03.116 Cellulitis of left lower limb (principal); F03.90 Unspecified dementia, unspecified severity, without behavioral disturbance, psychotic disturbance, mood disturbance, and anxiety; F05 Delirium due to known physiological condition; G47.00 Insomnia, unspecified; Z86.718 Personal history of other venous thrombosis and embolism; Z86.73 Personal history of transient ischemic attack (TIA), and cerebral infarction without residual deficits; Z79.01 Long term (current) use of anticoagulants; Z79.02 Long term (current) use of antithrombotics/antiplatelets; Z79.899 Other long term (current) drug therapy
CPT/HCPCS: 36415; 51701; 70450; 71045; 73030; 80053; 81001; 84484; 85025; 87040; 93005; 93971; 96365; 96366; 99284; 99285

== ENCOUNTER → 2023-11-17 19:51 | Outpatient (BNV) | payer OTHER, SELFPAY | PROVIDERS: Emergency Provider Emergency Medicine; PCP Family Medicine; Visit Provider Internal Medicine Cardiovascular Disease | DX: R94.31 Abnormal electrocardiogram [ECG] [EKG] (principal) | CPT/HCPCS: 93010 ==